=== PATIENT | female | born 1975 | race Hispanic/Latino ===

== ENCOUNTER 2017-06-06 10:50 | Emergency (ER) | payer OTHER ==
[2017-06-06 10:57] VITALS: BP 132/88; O2SAT 98; BMI 26.6
[2017-06-06 11:06] VITALS: RESP 18
--- NOTE | 2017-06-06 11:29 | ED PDOC ---
HPI: General Adult Time Seen by Provider: 06/06/17 11:22 Chief Complaint (Nursing): Cough, Cold, Congestion Chief Complaint (Provider): uri History Per: Patient (42 y/o female here with URI/cough since yesterday associated with throat irritation. Denies any fevers/chills. Denies any vomiting/diarrhea. ) Past Medical History Reviewed: Historical Data, Nursing Documentation, Vital Signs Vital Signs: Last Vital Signs Temp 98.8 F 06/06/17 11:52 Pulse 92 H 06/06/17 11:52 Resp 18 06/06/17 11:06 BP 132/88 06/06/17 10:55 Pulse Ox 98 06/07/17 18:02 - Family History Family History: States: No Known Family Hx - Home Medications Home Medications: Ambulatory Orders Medication Instructions Recorded Ibuprofen [Motrin] 600 mg PO Q8 PRN #21 tab 06/06/17 Promethazine/Codeine 5 ml PO Q12 PRN #100 ml 06/06/17 [Codeine/Promethazine 10 MG/5 Ml-6.25 MG/5 Ml] Pseudoephedrine [Sudafed Tab] 60 mg PO Q6 PRN #20 tab 06/06/17 - Allergies Allergies/Adverse Reactions: Allergies Allergy/AdvReac Type Severity Reaction Status Date / Time environmental Allergy CONGESTION Uncoded 06/06/17 11:05 Review of Systems ROS Statement: Except As Marked, All Systems Reviewed And Found Negative Physical Exam - Reviewed Nursing Documentation Reviewed: Yes Vital Signs Reviewed: Yes - Physical Exam Appears: Positive for: Well, Non-toxic, No Acute Distress Head Exam: Positive for: ATRAUMATIC, NORMAL INSPECTION, NORMOCEPHALIC Skin: Positive for: Normal Color, Warm, DRY Eye Exam: Positive for: EOMI, Normal appearance, PERRL ENT: Positive for: Normal ENT Inspection Neck: Positive for: Normal, Painless ROM Cardiovascular/Chest: Positive for: Regular Rate, Rhythm Respiratory: Positive for: CNT, Normal Breath Sounds Gastrointestinal/Abdominal: Positive for: Normal Exam, Bowel Sounds, Soft Back: Positive for: Normal Inspection Extremity: Positive for: Normal ROM Neurologic/Psych: Positive for: Alert, Oriented - ECG O2 Sat by Pulse Oximetry: 98 Disposition - Clinical Impression Clinical Impression: Upper respiratory infection - Patient ED Disposition Is Patient to be Admitted: No - Disposition Disposition: Routine/Home Disposition Time: 11:22 Condition: FAIR Prescriptions: Ibuprofen [Motrin] 600 mg PO Q8 PRN #21 tab PRN Reason: Pain, Moderate (4-7) Promethazine/Codeine [Codeine/Promethazine 10 MG/5 Ml-6.25 MG/5 Ml] 5 ml PO Q12 PRN #100 ml PRN Reason: Cough Pseudoephedrine [Sudafed Tab] 60 mg PO Q6 PRN #20 tab PRN Reason: Nasal Congestion Instructions: Upper Respiratory Infection (ED) Forms: [facility] (Colombian)
[2017-06-06 11:53] VITALS: PULSE 92; TEMP 98.8
== END 2017-06-06 11:30 | disposition home or self-care (01) ==
LOC: H.ER 10:50
DX: J06.9 Acute upper respiratory infection, unspecified (principal)

== ENCOUNTER 2018-01-23 09:07 | Emergency (ER) | payer OTHER ==
[2018-01-23 09:07] VITALS: BMI 26.6
[2018-01-23 09:14] VITALS: RESP 18
[2018-01-23 11:21] LABS: SQUAMOUS EPITHIAL 1 /hpf (0-5); URINE BACTERIA RARE (<OCC); URINE BILIRUBIN NEGATIVE (NEGATIVE); URINE BLOOD NEGATIVE (NEGATIVE); URINE CLARITY SLIGHTY-CLOUDY (Clear); URINE COLOR YELLOW (YELLOW); URINE GLUCOSE (UA) NEG (Normal); URINE LEUKOCYTE ESTERASE NEG Leu/uL (Negative); URINE PROTEIN NEGATIVE (NEGATIVE); URINE UROBILINOGEN 0.2-1.0 mg/dL (0.2-1.0)
[2018-01-23 11:29] LABS: ALB/GLOB RATIO 1.4 (1.0-2.1); ALBUMIN 4.5 g/dL (3.5-5.0); ALT/SGPT 49 U/L (9-52); AST/SGOT 37 U/L (14-36); BASO % 0.4 % (0.0-2.0); BLOOD UREA NITROGEN 12 mg/dl (7-17); CALCIUM 8.9 mg/dL (8.4-10.2); EOS # 0.1 K/uL (0.0-0.7); EOS % 0.7 % (0.0-4.0); GFR AFRICAN-AMERICAN > 60; GFR NON-AFRICAN AMERICAN > 60; HEMOGLOBIN 14.2 g/dL (12.0-16.0); LYMPH % 13.1 % (20.0-40.0); MEAN CELL VOLUME 94.6 fl (81.0-99.0); MEAN CORPUSCULAR HEMOGLOBIN 32.8 pg (27.0-31.0); MEAN CORPUSCULAR HGB CONC 34.7 g/dL (33.0-37.0); MEAN PLATELET VOLUME 9.6 fl (7.2-11.7); MONO # 0.3 K/uL (0.0-0.8); MONO % 4.1 % (0.0-10.0); NEUT # 6.2 K/uL (1.8-7.0); NEUT % 81.7 % (50.0-75.0); RBC 4.32 Mil/uL (3.80-5.20); RED CELL DISTRIBUTION WIDTH 12.5 % (11.5-14.5); WHITE BLOOD COUNT 7.6 K/uL (4.8-10.8)
--- NOTE | 2018-01-23 11:51 | ED PDOC ---
HPI: Abdomen Time Seen by Provider: 01/23/18 10:10 Chief Complaint (Nursing): GI Problem Chief Complaint (Provider): Vomiting, Abdominal Pain History Per: Patient History/Exam Limitations: no limitations Onset/Duration Of Symptoms: Sudden Onset (@0400) Current Symptoms Are (Timing): Still Present Additional Complaint(s): 42-year-old female presenting for evaluation of vomiting onset at 0400. Patient states she woke up at 4 am with sudden onset vomiting. She states shes had several episodes of vomiting throughout the morning. She reports any attempt to drink leads to vomiting. Since vomiting, patient reports generalized abdominal pain. Patient states she felt fine before going to bed last night. She denies any sick contacts or recent illness. LMP 01/16/18. Past Medical History Reviewed: Historical Data, Nursing Documentation, Vital Signs Vital Signs: Last Vital Signs Temp 97.8 F 01/23/18 09:31 Pulse 105 H 01/23/18 09:31 Resp 18 01/23/18 09:31 BP 117/76 01/23/18 09:31 Pulse Ox 96 01/23/18 14:51 - Medical History PMH: Anxiety, Depression - Surgical History Other surgeries: Eye surgery - Family History Family History: States: Unknown Family Hx - Home Medications Home Medications: Ambulatory Orders Medication Instructions Recorded Ibuprofen [Motrin] 600 mg PO Q8 PRN #21 tab 06/06/17 Promethazine/Codeine 5 ml PO Q12 PRN #100 ml 06/06/17 [Codeine/Promethazine 10 MG/5 Ml-6.25 MG/5 Ml] Pseudoephedrine [Sudafed Tab] 60 mg PO Q6 PRN #20 tab 06/06/17 - Allergies Allergies/Adverse Reactions: Allergies Allergy/AdvReac Type Severity Reaction Status Date / Time environmental Allergy CONGESTION Uncoded 06/06/17 11:05 Review of Systems ROS Statement: Except As Marked, All Systems Reviewed And Found Negative Gastrointestinal: Positive for: Vomiting, Abdominal Pain Physical Exam - Reviewed Nursing Documentation Reviewed: Yes Vital Signs Reviewed: Yes - Physical Exam Appears: Positive for: Non-toxic, No Acute Distress Head Exam: Positive for: ATRAUMATIC, NORMAL INSPECTION, NORMOCEPHALIC Skin: Positive for: Normal Color, Warm, Dry. Negative for: Rash Eye Exam: Positive for: EOMI, Normal appearance, PERRL ENT: Positive for: Normal ENT Inspection Neck: Positive for: Normal, Painless ROM, Supple Cardiovascular/Chest: Positive for: Regular Rate, Rhythm. Negative for: Murmur Respiratory: Positive for: Normal Breath Sounds. Negative for: Respiratory Distress Gastrointestinal/Abdominal: Positive for: Normal Exam, Soft. Negative for: Tenderness Back: Positive for: Normal Inspection. Negative for: L CVA Tenderness, R CVA Tenderness, Vertebral Tenderness Extremity: Positive for: Normal ROM. Negative for: Pedal Edema, Deformity Neurologic/Psych: Positive for: Alert, Oriented (x3). Negative for: Motor/ Sensory Deficits - Laboratory Results Result Diagrams: 01/23/18 11:07 01/23/18 11:07 - ECG O2 Sat by Pulse Oximetry: 96 (RA) Pulse Ox Interpretation: Normal Medical Decision Making Medical Decision Making: Plan: Workup for infectious process. Will order labs, Zofran, IV fluids, UA, and reassess patient. Discharge home if symptoms resolved and patient tolerating PO. Scribe Attestation: Documented by Chilo Rasmussen, acting as a scribe for Sushila Oakley MD. Provider Scribe Attestation: All medical record entries made by the Scribe were at my direction and personally dictated by me. I have reviewed the chart and agree that the record accurately reflects my personal performance of the history, physical exam, medical decision making, and the department course for this patient. I have also personally directed, reviewed, and agree with the discharge instructions and disposition. Disposition - Clinical Impression Clinical Impression: Vomiting - Disposition Disposition Time: 14:50 Condition: IMPROVED Additional Instructions: Increase fluid intake for the next 24 hours. Slowly incorporate solid foods into your diet starting with bland foods (banana, apple sauce, toast etc) and increase to more complex foods as tolerated. Return to the emergency department if symptoms continue for over 48 hours. Follow up with primary medical doctor as needed. Instructions: Nausea and Vomiting, Adult (DC) Forms: [facility] (Thai)
[2018-01-23 15:22] VITALS: BP 118/77; PULSE 88; TEMP 98.3; O2SAT 98
== END 2018-01-23 15:23 | disposition home or self-care (01) ==
LOC: H.ER 09:07
DX: R11.10 Vomiting, unspecified (principal); Z86.59 Personal history of other mental and behavioral disorders
CPT/HCPCS: 80053; 81003; 81025; 83735; 84100; 85025; 96360; 96374; 99284; J2405; J7030